=== PATIENT | female | born 1950 ===

== ENCOUNTER 2018-05-16 06:44 | Day surgery (SDC) | payer OTHER ==
[2018-05-15 10:14] VITALS: BMI 26.4
--- NOTE | 2018-05-16 07:58 | CP.SDSHP ---
Same Day Surgery H & P - History Proposed Procedure: COLONSCOPY Pre-Op Diagnosis: SEE NOTES - Previous Medical/Surgical History Cardiac: Hypertension Pulmonary: Asthma Misc: Other - Allergies Allergies: Allergies Seafood Allergy (Uncoded 05/16/18 06:59) RASH - Physical Exam General Appearance: N Vital Signs: Vital Signs 05/16/18 06:50 Temperature 98 F Pulse Rate 80 Respiratory 20 Rate Blood Pressure 135/65 O2 Sat by Pulse 98 Oximetry Mental Status: Alert & Oriented x3 Neuro: WNL Heart: Other Lungs: Other GI: WNL - {Optional Preform as Required} Breast: WNL Abdomen: Other Rectal: Other Integument: WNL : WNL Ortho: WNL ENT: WNL - Impression Pt. Evaluated Today:Candidate for Anesthesia & Procedure: Yes - Date & Time Time: 07:57 Short Stay Discharge - Short Stay Discharge Admitting Diagnosis/Reason for Visit: ENCOUNTER FOR SCREENING FOR MALIGNANT NEOPLASM OF Disposition: HOME/ ROUTINE
[2018-05-16] MEDS ORDERED: Propofol 10 mg/ml Inj (20 ML) ONE (08:00)
[2018-05-16 08:40] VITALS: TEMP 97.9
[2018-05-16] MEDS ORDERED: Belladonna-Phenobarbital PO ONE (08:55)
[2018-05-16 09:25] VITALS: BP 120/71; PULSE 82; RESP 19; O2SAT 99
== END 2018-05-16 09:22 | disposition home or self-care (01) ==
LOC: C.ENDO 06:44
PROVIDERS: ATTEND Specialist
DX: Z12.11 Encounter for screening for malignant neoplasm of colon (principal); K63.9 Disease of intestine, unspecified; K64.8 Other hemorrhoids; K64.4 Residual hemorrhoidal skin tags; K58.9 Irritable bowel syndrome, unspecified; I10 Essential (primary) hypertension; J45.909 Unspecified asthma, uncomplicated; Z98.890 Other specified postprocedural states; Z90.49 Acquired absence of other specified parts of digestive tract; Z91.013 Allergy to seafood
CPT/HCPCS: 45380; 88305; J2001; J2704